=== PATIENT | female | born 1955 | race Caucasian/White ===

== ENCOUNTER 2018-06-27 15:40 | Outpatient (REF) | payer MEDICAID, SELFPAY ==
[2018-06-27 19:52] LABS: Vitamin B12 637 pg/mL (193-986)
== END 2018-06-27 16:00 ==
LOC: NCHCN 15:40
PROVIDERS: PCP Nurse Practitioner Family; Visit Provider Nurse Practitioner Family
DX: D64.9 Anemia, unspecified (principal)
CPT/HCPCS: 82607

== ENCOUNTER 2019-07-26 13:43 | Outpatient (REF) | payer MEDICAID, SELFPAY ==
--- NOTE | 2019-07-26 11:20 | PAPFT_PTH ---
PATIENT: Connie Willis LOC: [facility] U#:[id number] AGE/SX: 64/F ROOM: RE07/26/[address]: Kayleigh Lee : 1955 BED: DIS: 07/26/2019 SPEC #: [id number] RECD: 07/26/19 17:59 STATUS: AUBREE REQ #: [id number] OLGA: 07/26/19 11:[address]: Kayleigh Lee DEPT: [facility] Cytology RECD BY: Michaelle Cadet ENTERED: 07/26/19 18:00 SP TYPE: PAPFT OTHR DR: Meryl Warner Tissues: 1 - CX/ENDOCX FOR PAP SMEARS Procedures: PAP THIN PREP/UVM Screening HPV DNA PROBE Comments: [id number]
== END 2019-07-26 14:03 ==
LOC: LBN 13:43
PROVIDERS: PCP Nurse Practitioner Family; Visit Provider Obstetrics & Gynecology Gynecology
DX: Z12.4 Encounter for screening for malignant neoplasm of cervix (principal); Z11.51 Encounter for screening for human papillomavirus (HPV)
CPT/HCPCS: 88142; 87624

== ENCOUNTER → 2020-11-12 10:45 | Outpatient (BNVA) | payer MEDICARE, MEDICAID, SELFPAY | PROVIDERS: PCP Nurse Practitioner; Referring Provider Nurse Practitioner Family; Visit Provider Physical Therapy Assistant | DX: Z12.11 Encounter for screening for malignant neoplasm of colon (principal); Z86.010 Personal history of colon polyps; Z80.0 Family history of malignant neoplasm of digestive organs ==

== ENCOUNTER 2020-12-21 06:17 | Day surgery (SDC) | payer MEDICARE, OTHER, MEDICAID, SELFPAY ==
[2020-12-21 06:22] VITALS: BP 136/89; PULSE 76; RESP 18; TEMP 36.6; O2SAT 97
[2020-12-21] MEDS: Lactated Ringers 1,000 ML 80 ML IV (06:55)
--- NOTE | 2020-12-21 07:16 | W.PREOPHP ---
Date of service: 12/21/20 Time of Service: 07:17 Assessment and Plan Assessment and plan (1) Encounter for colonoscopy due to history of adenomatous colonic polyps: Status: Acute Assessment and plan: The patient is here for Colonoscopy pre-op.Her last screening was in 2015, which was remarkable for tubular adenomatous polyps x 3. She reports a family history of colon cancer in her mother in her late 70s. She has not had any bowel habit changes. -Discussed colonoscopy bowel prep as well as the procedure. Discussed possible complications of the procedure to include bleeding, pain, perforation, missed small lesion/polyp, sore throat, aspiration and adverse reaction to the medications. Questions were answered to patient?s satisfaction. No guarantees were implied or given. History of Present Illness Narrative: 65 y/o female with history of brain cancer (s/p surgery and radiation in 2017), IBS and depression presents for colonoscopy screening pre-op. Her last screening was in 2015, which was remarkable for tubular adenomatous polyps x 3. She reports a family history of colon cancer in her mother in her late 70s. She denies any changes in bowel habits including bloody or black tarry stools, abdominal pain, diarrhea or constipation. She denies constitutional symptoms. Denies use of marijuana or any other recreational or illegal drugs. She denies chest pain, palpitations, dyspnea or dyspnea with exertion. She reports walking a few times per week as well as participating in [employer] workout classes which work on balance, given her cerebellum was effected during her brain surgery. She denies prior history or family history of adverse reactions or complications with anesthesia. The patient denies any history of stroke, DE, seizures, bleeding or clotting disorders. She denies having any implanted metal in her body. No changes in her health since she was last seen in the office Review of Systems Cardiovascular Cardiovascular: Denies chest pain, Denies chest pain at rest, Denies irregular heart rhythm, Denies dyspnea and Denies dyspnea on exertion Respiratory Respiratory: Denies cough, Denies dyspnea and Denies dyspnea on exertion Gastrointestinal Gastrointestinal: Reports as per HPI Genitourinary Genitourinary: Denies dysuria, Denies urinary incontinence and Denies urinary urgency Endocrine Endocrine: Reports system reviewed and no additional complaints, except as documented Hematologic/Lymphatic Hematologic/Lymphatic: Denies easy bruising and Denies lymphadenopathy [facility] Medical History Adenomatous colon polyp Anal and rectal polyp 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 07/19/2017 excision. 01/11/2018 XRT Calcium nephrolithiasis Depression Dyspareunia 7yrs ago. Used topical E2 with some improvement. Fracture of right fibula closed. casted with no need for surgery. Hematuria 2014 s/p urology eval. 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 After excision of lymphoma of brain July 2017 Trigger finger of thumb Surgical History Appendectomy 1977 Cervical Procedure 2002 cervical polyp removed/sonohysterogram 1996 nabothian cyst and cervical polyp removed. Colonoscopy - IV Sedation (~1999) Cystoscopy 10/16/15- Dr. Son Diagnostic Laproscopy 2002 - burst ovarian cyst Hx of arthroscopy of right knee 1971 Oophrectomy, Right 1989. ovarian cystectomy Social History Smoking/Tobacco Use Status: Former Tobacco Use Quit Date: 10/09/13 Tobacco: How many years used: 30 Smoking risk assessment performed?: Yes Alcohol Intake: current Alcohol Intake frequency: holidays/special occasions only Details: monthly or less/rare Drug use: Never Substance use type: does not use Household members: other Details: lives alone.Not in a relationship. Number of Children: 0 current occupation: book keeper @ [employer] What type of physical activity do you participate in: none Duration: 15-30 minutes/day Frequency: 3-4 times per week Do you feel safe at home: Yes (Lives alone) Female Reproductive History Menstrual Age of Menarche: 13 Menopause type: natural History History 1 Para Hx # Term Pregnancies 0 Multiple births Hx # Pregnancies Ectopic pregnancies AB induced Hx Number of Living Children AB spontaneous Meds Home Medications and Allergies Allergies Allergy/AdvReac Type Severity Reaction Status Date / Time bee/wasp stings Allergy extreme Uncoded 12/21/20 06:47 swelling Home Medications Medication Instructions Recorded Confirmed Type acetaminophen [Tylenol] 325 - 650 mg PO PRN tab-cap 09/29/17 12/21/20 History cyanocobalamin (vitamin B-12) 1,000 mcg PO DAILY 07/05/18 12/21/20 History 1,000 mcg/mL oral drops ibuprofen 200 mg tablet 400 mg PO QID PRN 02/06/19 12/21/20 History Exam Const General: healthy appearing and comfortable Resp Effort & Inspection: normal respiratory effort Auscultation: clear to auscultation bilaterally Cardio Rate: regular rate Rhythm: regular rhythm Heart Sounds: no click, no gallops and no murmurs Results Last Vital Signs Temp 97.9 F 12/21/20 06:22 Pulse 76 12/21/20 06:22 Resp 18 12/21/20 06:22 BP 136/89 12/21/20 06:22 Pulse Ox 97 12/21/20 06:22
--- NOTE | 2020-12-21 07:21 | COLE_ITS ---
Date of service: 12/21/20 Time of Service: 07:32 Colonoscopy Report Date of procedure: 12/21/20 Pre-op diagnosis general: Hx of colon polyps Post-op diagnosis procedure note: same Procedure: Colonoscopy Surgeon: Zuleyma Crocker Anesthesia proc note operative: other (general/ ASA /) Estimated blood loss (mL): 3 Pathology: other (Rectal Polyps x4, ascending polyp x2, transverse polyps x3, descending polyp x2, sigmoid polyps x10) Complications: None Disposition: same day Indications: 65 y/o female with history of brain cancer (s/p surgery and radiation in 2017), IBS and depression presents for colonoscopy screening pre-o p. Her last screening was in 2015, which was remarkable for tubular adenomatous polyps x 3. She reports a family history of colon cancer in her mother in her late 70s. She denies any changes in bowel habits including bloody or black tarry stools, abdominal pain, diarrhea or constipation. She denies constitutional symptoms. Risks, benefits and complications have been reviewed. Complications include but are not limited to bleeding, pain, perforation, missed small lesion/polyp, sore throat, aspiration and adverse reaction to the medications. Questions were entertained and answered to their satisfaction and they wished to proceed. No guarantees were given or implied. Prep: Miralax/Dulcolax Procedure Start Time: 07:32 Procedure End Time: 08:33 Retraction Time: 51 minutes Findings: Multiple small polyps Procedure Description: After informed consent was obtained the patient was taken to the procedure room and placed in a left decubitous position. Monitors were applied and a time out was done. The patients name, date of , procedure, allergies to medications and metal in their body was reviewed. The patient was then sedated. Once sedated and comfortable a rectal exam was done. External exam was normal. Internal exam revealed a normal sphincter tone and no palpable masses. The scope was then introduced and retro-flexed. No internal hemorrhoids, polyps or masses were identified on retro-flexion. The scope was then advanced to the cecum without difficulty. The ileocecal vlave and appendiceal orifice were identified. The prep was good. The scope was then slowly retracted over 52 minutes back into the rectum. Polyps were removed with cold forceps in the ascending colon x2, Transverse colon x2, descending colon x2, sigmoid colon x10 and rectum x4. One polyp was removed with a hot snare in the Transverse colon. There was no diverticulosis noted. The scope was removed and the patient was woken up and taken back to Same day surgery in stable condition. The patient tolerated the procedure well and there were no immediate complications. Follow up: The patient should follow up in 3-5 years unless they develop changes in bowel habits or other new gastrointestinal complaints.
--- NOTE | 2020-12-21 07:24 | W.PM.DSUDISC ---
Discharge Plan Disposition Patient Disposition: HOME Condition: Good Discharge Details Reason For Visit: hx of polyps Attending Provider: Zuleyma Crocker Primary Care Provider: Trisha Calabrese Home Meds and New Rx's Prescriptions: Continued Vitamin B-12 1,000 mcg/mL drops 1,000 mcg PO DAILY RF: 0 acetaminophen [Tylenol] 325 MG tablet 325 - 650 mg PO PRN RF: 0 ibuprofen 200 mg tablet 400 mg PO QID PRNRF: 0 Discharge Instructions Instructions: Colorectal Polyps (DC) Additional Instructions: Findings: Polyps x 21 Follow up: Will depend on pathology results Please call if you develop: fevers >101.5 Nausea or Vomiting Abdominal pain that is not transient DAY SURGERY UNIT POST ENDOSCOPY INSTRUCTIONS 1. Because there will be medication in your system for the next 24 hours, you may feel a little sleepy. Your coordination will be affected. Therefore: a. Do not drive or operate dangerous equipment for 24 hours. b. Do not drink alcohol beverages for 24 hours (not even beer). c. Plan to go home and rest for the day. 2. Generally there are no restrictions on your activity after a day or so has gone by, but you may feel a bit fatigued for a few days. 3 After you arrive home you may have a light meal and return to a normal diet as you can tolerate it without feeling sick to your stomach. 4. After surgery, you may feel pain or discomfort. This should be only transient, but if it persists please contact your doctor. 5. If there are any questions regarding the findings of your procedure, please feel free to contact your doctor. 6. If you are unable to contact your doctor with a problem, contact the hospital at [phone]. 7. Continue all your regular medications unless directed otherwise. I understand the above instructions and have no questions. Signature of Patient or Responsible Adult Escort Date/Time Name of Responsible Adult Escort Signature of Nurse Date/Time Activity:: Activity as Tolerated Diet:: As Tolerated DS: Diagnosis Discharge Diagnosis (1) Encounter for colonoscopy due to history of adenomatous colonic polyps: Status: Acute
--- NOTE | 2020-12-21 07:34 | BOWEL_PTH ---
PATIENT: Connie Willis LOC: [facility] U#:[id number] AGE/SX: 65/F ROOM: RE12/21/[address]: Zuleyma Crocker MD : 1955 BED: DIS: 12/21/2020 SPEC #: [id number] RECD: 12/21/20 12:35 STATUS: AUBREE REDerian #: [id number] OLGA: 12/21/20 07:[address]: Zuleyma Crocker DEPT: Surgical Specimen RECD BY: Michaelle Cadet ENTERED: 12/21/20 12:37 SP TYPE: Bowel OTHR DR: Trisha Calabrese Tissues: 1 - BIOPSY BOWEL 2 - BIOPSY BOWEL 3 - BIOPSY BOWEL 4 - BIOPSY BOWEL 5 - BIOPSY BOWEL Procedures: GROSS AND MICRO LEVEL 4 Comments: [id number]
[2020-12-21 09:01] VITALS: BP 114/81; PULSE 67; RESP 16; TEMP 36.3; O2SAT 99
== END 2020-12-21 09:35 | disposition home or self-care (01) ==
PROVIDERS: PCP Nurse Practitioner; Visit Provider Surgery
PROC: 0DJD8ZZ Inspection of Lower Intestinal Tract, Via Natural or Artificial Opening Endoscopic (ICD-10-PCS; CPT 45378; principal; 2020-12-21 07:30)
DX: Z12.11 Encounter for screening for malignant neoplasm of colon (principal); Z86.010 Personal history of colon polyps; K62.1 Rectal polyp; D12.2 Benign neoplasm of ascending colon; D12.3 Benign neoplasm of transverse colon; D12.4 Benign neoplasm of descending colon; D12.5 Benign neoplasm of sigmoid colon
CPT/HCPCS: 45385; 45380; 88305; NC; J2001; J2405; J2704

== ENCOUNTER 2022-01-20 18:52 | Outpatient (REF) | payer MEDICARE, OTHER, MEDICAID, SELFPAY ==
[2022-01-20 20:32] LABS: Anion Gap 10.8 mmol/L (3-11); BUN 29 mg/dL (7-18); CO2 28.2 mmol/L (21.0-32.0); CREATININE 0.8 mg/dL (0.55-1.02); Calcium 9.2 mg/dL (8.5-10.1); Chloride 100 mmol/L (98-107); Glucose 97 mg/dL (74-106); Magnesium 2.1 mg/dL (1.8-2.4); Potassium 3.5 mmol/L (3.5-5.1); Sodium 139 mmol/L (136-145)
== END 2022-01-20 18:53 | disposition home or self-care (01) ==
LOC: NCHCN 18:52
PROVIDERS: PCP Nurse Practitioner; Visit Provider Nurse Practitioner Family
DX: I10 Essential (primary) hypertension (principal); N20.0 Calculus of kidney
CPT/HCPCS: 80048; 83735

== ENCOUNTER 2022-01-28 13:26 | Outpatient (REF) | payer MEDICARE, OTHER, MEDICAID, SELFPAY ==
[2022-01-28 13:47] LABS: PROTEIN < 6.0 mg/dL (0.0-11.9); Total Volume 3000 ml
== END 2022-01-28 13:27 | disposition home or self-care (01) ==
LOC: NCHCN 13:26
PROVIDERS: PCP Nurse Practitioner; Visit Provider Nurse Practitioner Family
DX: I10 Essential (primary) hypertension (principal); N20.0 Calculus of kidney
CPT/HCPCS: 81050; 84155

== ENCOUNTER → 2022-06-17 11:14 | Outpatient (BNVA) | payer MEDICARE, OTHER, MEDICAID, SELFPAY | PROVIDERS: PCP Nurse Practitioner Family; Referring Provider Nurse Practitioner Family; Visit Provider Surgery | DX: Z86.010 Personal history of colon polyps (principal); Z12.11 Encounter for screening for malignant neoplasm of colon ==

== ENCOUNTER 2022-06-29 09:44 | Day surgery (SDC) | payer MEDICARE, OTHER, MEDICAID, SELFPAY ==
--- NOTE | 2022-06-29 06:50 | W.COLOREPORT ---
Colonoscopy Report Date of procedure: 06/29/22 Pre-op diagnosis general: Colon Cancer Screening, Hx of colon polyps Post-op diagnosis procedure note: other (colon polyps) Procedure: Colonoscopy with polypectomy Surgeon: Zuleyma Crocker Anesthesia Type: General:No Airway Estimated blood loss (mL): 2 Pathology: other (Ascending [id number] x2, descending polyp, sigmoid polyp and rectal polyps x2) Complications: None Disposition: same day Indications: The patient? is a pleasant ? 67-year-old female who is here to discuss another screening colonoscopy. ? Her last colonoscopy was in February of 2021 and she was found to have 21 polyps. She denies any changes in bowel habits, melena, hematochezia, unintentional weight loss or family history of colon cancer.? The procedure and risks were discussed.? The prep was reviewed in detail.? Risks, benefits and complications have been reviewed. Complications include but are not limited to bleeding, pain, perforation, missed small lesion/polyp, sore throat, aspiration and adverse reaction to the medications. Questions were entertained and answered to their satisfaction and they wished to proceed. No guarantees were given or implied. Tells me that she did have some nausea and vomiting a year ago with the MiraLAX prep.? Her was adequate for her colonoscopy last time.? I will keep her on the MiraLAX but will call in some Zofran for the nausea.? I asked her to go ahead and take 1 Zofran prior to starting the prep and then she can take it every 4 hours after that to help and hopefully we can avoid vomiting this time. Prep: Miralax/Dulcolax Procedure Start Time: 11:39 Procedure End Time: 12:13 Retraction Time: 21 minutes Findings: 6 polyps Procedure Description: After informed consent was obtained the patient was taken to the procedure room and placed in a left decubitous position. Monitors were applied and a time out was done. The patients name, date of , procedure, allergies to medications and metal in their body was reviewed. The patient was then sedated. Once sedated and comfortable a rectal exam was done. External exam was normal. Internal exam revealed a normal sphincter tone and no palpable masses. The scope was then introduced and retro-flexed. No internal hemorrhoids, polyps or masses were identified on retro-flexion. The scope was then advanced to the cecum without difficulty. The ileocecal vlave and appendiceal orifice were identified. The prep was adequate. The scope was then slowly retracted over 21 minutes back into the rectum. Polyps were removed with cold forceps in the ascending colon, descending polyp, sigmoid colon and rectal polyps x2 and with cold forceps in the ascending colon polyp. There was no diverticulosis noted. The scope was removed and the patient was woken up and taken back to Same day surgery in stable condition. The patient tolerated the procedure well and there were no immediate complications.
--- NOTE | 2022-06-29 06:52 | W.PM.DSUDISC ---
Discharge Plan Disposition Patient Disposition: HOME Condition: Good Discharge Details Reason For Visit: colonoscopy Attending Provider: Zuleyma Crocker Primary Care Provider: Renee Krause Home Meds and New Rx's Prescriptions: Continued chlorthalidone 25 mg tablet 12.5 mg PO DAILY ondansetron HCl 4 mg tablet 4 mg PO Q4H Qty: 7 0RF Rx Instructions: Use the day of colonoscopy prep to avoid N/V acetaminophen [Tylenol] 325 MG tablet 325 - 650 mg PO PRN ibuprofen 200 mg tablet 400 mg PO QID PRN Discontinued bisacodyl [Dulcolax (bisacodyl)] 5 mg tablet,delayed release (DR/EC) 5 mg PO ONCE Qty: 4 0RF polyethylene glycol 3350 17 gram/dose powder 17 g PO ONCE Qty: 238 0RF Discharge Instructions Instructions: Colorectal Polyps (DC) Additional Instructions: Findings: polyps x 6 Follow up: will depend on final pathology Please call if you develop: fevers >101.5 Nausea or Vomiting Abdominal pain that is not transient Rectal bleeding that is more then a tbsp A hard abdomen and inability to pass gas DAY SURGERY UNIT POST ENDOSCOPY INSTRUCTIONS Instructions for everyone who is given Anesthesia: For your safety, please do the following for the next 24 Hours: a. Do not drive or operate dangerous equipment b. Do not drink alcohol beverages or use any recreational drugs for the first 24 hours or while taking pain medications. The medications in your body may have a reaction that can be dangerous. c. Do not make any important decisions or sign any important papers 1. Generally there are no restrictions on your activity after a day or so has gone by, but you may feel a bit fatigued for a few days. 2. After you arrive home you may have a light meal and return to a normal diet as you can tolerate it without feeling sick to your stomach. 3. After surgery, you may feel pain or discomfort. This should be only transient, but if it persists please contact your doctor. 4. If there are any questions regarding the findings of your procedure, please feel free to contact your doctor. 6. If you are unable to contact your doctor with a problem, contact the hospital at [phone]. 7. Continue all your regular medications unless directed otherwise. I understand the above instructions and have no questions. Signature of Patient or Responsible Adult Escort Date/Time Name of Responsible Adult Escort Signature of Nurse Date/Time Stand Alone Forms: Lisa Benítez (FRANSISCOU) Activity:: Activity as Tolerated Diet:: As Tolerated Discharge Orders Discharge Orders: Discharge Order (Routine); Ordered 06/29/22 Ordered By: Zuleyma Crocker
--- NOTE | 2022-06-29 07:09 | ANES.PREOP_ITS ---
General Info Date of Service Date Performed: 06/29/22 Height: 5 ft 6 in Weight: 78.528 kg Body Mass Index (BMI): 27.9 Surgical Procedure: Operation Date: 06/29/22 11:35 Proposed Procedure Side Surgeon p Colonoscopy Zuleyma Crocker MD Meds Allergies and Home Medications Allergies Allergy/AdvReac Type Severity Reaction Status Date / Time bee/wasp stings Allergy extreme Uncoded 06/28/22 12:09 swelling Home Medication Medication Instructions Recorded acetaminophen 325 mg tablet 325 - 650 mg PO PRN 09/29/17 (Tylenol) ibuprofen 200 mg tablet 400 mg PO QID PRN 02/06/19 bisacodyl 5 mg tablet,delayed 5 mg PO ONCE #4 tabs 06/17/22 release (Dulcolax (bisacodyl)) chlorthalidone 25 mg tablet 12.5 mg PO DAILY 06/17/22 ondansetron HCl 4 mg tablet 4 mg PO Q4H #7 tabs 06/17/22 polyethylene glycol 3350 17 17 g PO ONCE #238 grams 06/17/22 gram/dose oral powder Current Visit Medications: Current Medications Generic Name Dose Route Start Last Admin Trade Name Freq PRN Reason Stop Dose Admin Hyoscyamine Sulfate 0.125 mg 06/29/22 06:52 Hyoscyamine 0.125 Mg Sl/Oral/Chew SL DIRECTED PRN Ringer's Solution 1,000 mls @ 80 mls/hr 06/29/22 06:00 IV 06/29/22 23:59 INFUSION COUNT INCLUDES THE [facility] IV Miscellaneous Supplies 1 each 06/29/22 06:00 Iv Access IV 06/29/22 23:59 DIRECTED LINDA Ondansetron HCl 4 mg 06/29/22 06:52 Ondansetron 4 Mg/2 Ml Vial IVP Q4H PRN PRN Nausea / Vomiting Sodium Chloride 0 ml 06/29/22 06:00 Normal Saline Flush 10 Ml Syr IV 06/29/22 23:59 PRN PRN Sodium Chloride 0 ml 06/29/22 06:00 Normal Saline 10 Ml Vial IJ 06/29/22 23:59 DIRECTED PRN Sterile Water 0 ml 06/29/22 06:00 Water,Injection,Sterile 10 Ml Vial IJ 06/29/22 23:59 DIRECTED PRN PFSH Active Problems Active Problems: Problem Status Onset Code Serrated adenoma of colon D12.6 Tubular adenoma of colon D12.6 Hyperplastic colon polyp K63.5 Encounter for colonoscopy due to history of adenomatous colonic polyps Z12.11, Z86.010 IBS (irritable bowel syndrome) K58.9 Brain neoplasm malignant C71.9 Medical History Medical History Adenomatous colon polyp Anal and rectal polyp Ataxia Calcium nephrolithiasis Cerebellar ataxia Depression Dizziness Dyspareunia 7yrs ago. Used topical E2 with some improvement. Fracture of right fibula closed. casted with no need for surgery. Hematuria 2014 s/p urology eval. 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 After excision of lymphoma of brain July 2017 Trigger finger of thumb Surgical History Surgical History Appendectomy 1977 Cervical Procedure 2002 cervical polyp removed/sonohysterogram 1996 nabothian cyst and cervical polyp removed. Colonoscopy - IV Sedation (~1999) Cystoscopy 10/16/15- Dr. Son Diagnostic Laproscopy 2002 - burst ovarian cyst History of colonoscopy (~10/2020) Hx of arthroscopy of right knee 1970 Oophrectomy, Right 1989. ovarian cystectomy Tobacco Smoking/Tobacco Use Status: Former Tobacco Use Alcohol Alcohol Intake: current Alcohol intake frequency: holidays/special occasions only Details: monthly or less/rare Substance Use Substance use: Never Substance use type: does not use Prental History History 1 Para Hx # Term Pregnancies 0 Multiple births Hx # Pregnancies Ectopic pregnancies AB induced Hx Number of Living Children AB spontaneous Vital Signs and Lab Results Lab Results Blood Type / Crossmatch: No Data to Display Complete Blood Count: No Data to Display Complete Metabolic Panel: No Data to Display Liver Function Panel: No Data to Display Coagulation Panel: No Data to Display Cardiac Panel: No Data to Display Arterial Blood Gas: No Data to Display Venous Blood Gas: No Data to Display Pancreas Panel: No Data to Display Thyroid Panel: No Data to Display Infectious Disease: No Data to Display Blood Cultures: No Data to Display Toxicology Panel: No Data to Display Anesthesia Assessment and Plan Anesthesia History Personal History: No History of Anesthesia Complications Family History: No Family History of Anesthesia Complications Exercise Tolerance Exercise Tolerance: Metabolic Equivalents>4 Pertinent Negatives Pertinent Negatives: No Symptoms of GERD, No Major Cardiovascular Symptoms or Complaints and No Major Pulmonary Symptoms or Complaints Cardiac & Pulmonary Exam Cardiac Exam: Normal S1/S2 Heart Sounds Pulmonary Exam: Clear Bilateral Breath Sounds Implantable Cardiac Device Does patient have a Pacemaker or an ICD?: No Airway Exam Known Difficult Airway: No Mallampati Class: 2 Mouth Opening: Normal (> 3cm) Thyromental Distance: Greater than 3 cm Neck Range of Motion: Full ROM Neck Circumference: Normal Teeth Condition: Normal Dentition and Generalized Poor Dentition ASA Classification ASA Score: ASA 3 Emergency Case?: No NPO Status NPO Status: NPO Clears >2 hours, Solids >8 hours Anesthesia Plan Resuscitation Status: Full Code Anesthesia Technique: General Anesthesia Airway Planned: Natural Airway Monitors Used: Standard Monitors Preoperative Comments:: Ataxia present, feels clumsy most of the time. Used to have vertigo, states not present
[2022-06-29 10:07] VITALS: BP 130/96; PULSE 76; RESP 16; TEMP 36.4; O2SAT 96
[2022-06-29] MEDS: Lactated Ringers 1,000 ML 80 ML IV (10:32)
[2022-06-29 11:34] VITALS: BMI 27.9
--- NOTE | 2022-06-29 11:50 | BOWEL_PTH ---
PATIENT: Connie Willis LOC: [facility] U#:[id number] AGE/SX: 67/F ROOM: RE06/29/[address]: Zuleyma Crocker MD : 1955 BED: DIS: 06/29/2022 SPEC #: [id number] RECD: 06/29/22 13:04 STATUS: AUBREE [facility] #: [id number] OLGA: 06/29/22 11:[address]: Zuleyma Crocker DEPT: Surgical Specimen RECD BY: Michaelle Cadet ENTERED: 06/29/22 13:05 SP TYPE: Bowel OTHR DR: Renee Krause Tissues: 1 - BIOPSY BOWEL 2 - BIOPSY BOWEL 3 - BIOPSY BOWEL 4 - BIOPSY BOWEL Procedures: GROSS AND MICRO LEVEL 4 Comments: [id number]
[2022-06-29 12:19] VITALS: BP 123/95; PULSE 87; RESP 16; TEMP 36.4; O2SAT 97
--- NOTE | 2022-06-29 12:24 | W.ANESPOSTOP ---
Postoperative Evaluation Date, Time and Location Date Performed: 06/29/22 Time Performed: 12:24 Patient Location: Day Surgery Unit Vital Signs Most Recent Imported Vital Signs: Most Recent Vital Signs Temp Pulse Resp BP Pulse Ox 36.4 C L 87 16 123/95 H 97 06/29/22 12:19 06/29/22 12:19 06/29/22 12:19 06/29/22 12:19 06/29/22 12:19 Pain Score Most Recent Pain Score: Most Recent Pain Score Pain Level 3 06/29/22 12:19 Assessment Mental Status: Awake (Alert & Oriented to Patient Baseline) Airway and Respiratory Function: Patent airway with normal (patient baseline) respiratory exam Cardiovascular Function: Hemodynamically Stable Hydration Status: Adequately Hydrated Nausea & Vomiting: No Nausea or Vomiting Pain: Pain is tolerable per patient Peripheral Nerve Block: Patient did not receive a nerve block
[2022-06-29 12:48] VITALS: BP 122/89; PULSE 74; RESP 16; TEMP 36.2; O2SAT 98
== END 2022-06-29 13:07 | disposition home or self-care (01) ==
PROVIDERS: PCP Nurse Practitioner Family; Visit Provider Surgery
PROC: 0DJD8ZZ Inspection of Lower Intestinal Tract, Via Natural or Artificial Opening Endoscopic (ICD-10-PCS; CPT 45378; principal; 2022-06-29 11:30)
DX: Z12.11 Encounter for screening for malignant neoplasm of colon (principal); K63.5 Polyp of colon; Z86.010 Personal history of colon polyps
CPT/HCPCS: 45380; 88305

== ENCOUNTER 2022-07-29 11:17 | Outpatient (REF) | payer MEDICARE, MEDICAID, SELFPAY ==
--- NOTE | 2022-07-29 11:00 | PAPFT_PTH ---
PATIENT: Connie Willis LOC: [facility] U#:[id number] AGE/SX: 67/F ROOM: RE07/29/[address]: Kayleigh Lee : 1955 BED: DIS: 07/29/2022 SPEC #: [id number] RECD: 07/29/22 13:01 STATUS: AUBREE REDerian #: [id number] OLGA: 07/29/22 11:[address]: Kayleigh Lee DEPT: [facility] Cytology RECD BY: Michaelle Cadet ENTERED: 07/29/22 13:01 SP TYPE: PAPFT OTHR DR: Renee Krause Tissues: 1 - CX/ENDOCX FOR PAP SMEARS Procedures: PAP THIN PREP/[facility] Screening HPV DNA PROBE Comments: [id number]
== END 2022-07-29 11:18 | disposition home or self-care (01) ==
LOC: LBN 11:17
PROVIDERS: PCP Nurse Practitioner Family; Visit Provider Obstetrics & Gynecology Gynecology
DX: Z12.4 Encounter for screening for malignant neoplasm of cervix (principal); Z11.51 Encounter for screening for human papillomavirus (HPV); Z01.419 Encounter for gynecological examination (general) (routine) without abnormal findings
CPT/HCPCS: 88142; 87624

== ENCOUNTER 2022-09-15 15:36 | Outpatient (REF) | payer MEDICARE, MEDICAID, SELFPAY | END 2022-09-15 15:37 | disposition home or self-care (01) | LOC: NCHCN 15:36 | PROVIDERS: PCP Nurse Practitioner Family; Visit Provider Nurse Practitioner Family | DX: N39.0 Urinary tract infection, site not specified (principal) | CPT/HCPCS: 87086 ==

== ENCOUNTER 2023-10-30 04:43 | Outpatient (CLI) | payer MEDICARE, SELFPAY ==
[2023-10-30 13:01] LABS: Abs Immature Grans 0.03 10^3/uL (0.0-0.06); Absolute Basophil Count 0.06 10^3/uL (0.0-0.2); Absolute Lymphocyte Count 1.08 10^3/uL (1.2-3.4); Absolute Monocyte Count 0.71 10^3/uL (0.1-0.8); Absolute Neutrophil Count 5.11 10^3/uL (1.2-6.7); Basophils % 0.8; Eosinophils % 1.4; HCT 45.2 % (36.0-46.0); HGB 15.1 g/dL (11.2-15.7); Immature Grans % 0.4; Lymphocytes % 15.2; MCH 28.4 pg (27.0-33.0); MCHC 33.4 % (32.0-36.0); MCV 85 fL (80-95); MPV 10.1 fL (8.0-11.0); Neutrophils % 72.2; Platelet Count 344 10^3/uL (130-400); RBC 5.31 10^6/uL (3.93-5.22); RDW 13.5 % (11.7-14.6); RDW-SD 42.1 fL; WBC 7.09 10^3/uL (4.4-10.8)
[2023-10-30 13:31] LABS: ALT 16 U/L (14-59); AST 9 U/L (15-37); Albumin 3.9 g/dL (3.4-5.0); Alkaline Phosphatase 98 U/L (46-116); Anion Gap 10.3 mmol/L (3-11); BUN 27 mg/dL (7-18); Bilirubin, Total 0.3 mg/dL (0.2-1.0); CO2 29.7 mmol/L (21.0-32.0); CREATININE 0.8 mg/dL (0.55-1.02); Calcium 9.5 mg/dL (8.5-10.1); Chloride 101 mmol/L (98-107); Estimated GFR 80.21 (mL/min/1.73m2); Glucose 121 mg/dL (74-106); LDH 181 U/L (81-234); Potassium 3.6 mmol/L (3.5-5.1); Sodium 141 mmol/L (136-145); Total Protein 7.2 g/dL (6.4-8.2)
[2023-10-31 07:30] LABS: IgA 81 mg/dL (85-499); IgG 749 mg/dL (610-1616); IgM 137 mg/dL (35-242)
== END 2023-10-30 04:44 | disposition home or self-care (01) ==
LOC: LBO 04:43
PROVIDERS: PCP Family Medicine; Visit Provider Internal Medicine Hematology & Oncology
DX: C85.80 Other specified types of non-Hodgkin lymphoma, unspecified site (principal)
CPT/HCPCS: 36415; 80053; 82784; 83615; 85025

== ENCOUNTER 2024-03-06 16:34 | Outpatient (CLI) | payer MEDICARE, SELFPAY ==
[2024-03-06 13:40] LABS: Anion Gap 2.5 mmol/L (3-11); BUN 23 mg/dL (7-18); CO2 32.5 mmol/L (21.0-32.0); CREATININE 0.7 mg/dL (0.55-1.02); Calcium 9.5 mg/dL (8.5-10.1); Calculated LDL 206 mg/dL (<100); Chloride 101 mmol/L (98-107); Cholesterol 294 mg/dL (<200); Estimated GFR 93.56 (mL/min/1.73m2); Glucose 104 mg/dL (74-106); HDL Cholesterol 52 mg/dL (40-60); Potassium 3.2 mmol/L (3.5-5.1); Sodium 136 mmol/L (136-145); Triglyceride 181 mg/dL (<150)
== END 2024-03-06 16:35 | disposition home or self-care (01) ==
LOC: LBO 16:36
PROVIDERS: PCP Family Medicine; Visit Provider Family Medicine
DX: Z13.6 Encounter for screening for cardiovascular disorders (principal); I10 Essential (primary) hypertension
CPT/HCPCS: 36415; 80048; 80061

== ENCOUNTER → 2024-03-14 02:45 | Outpatient (CLI) | payer MEDICARE, SELFPAY ==
--- NOTE | 2024-03-14 08:15 | DI.DEXA_ITS ---
Exam(s) XR DEXA BONE DENSITY W/WO LEONID EXAM: XR DEXA BONE DENSITY W/WO LEONID CLINICAL HISTORY: menopause disorder, N95.9 TECHNIQUE: Routine DEXA evaluation of the lumbar spine, hip, or forearm. COMPARISON: No exams were available for comparison FINDINGS: Performed on a Hologic unit. Lateral image: No compression fracture evident. Lumbar Spine total T-score: -2.1 Hip total T-score:-0.4 Independent reading at the level of the femoral neck yields T-score of -1.3 Forearm total T-score: -2.1 IMPRESSION: Bone mineral density measures in the osteopenia range. Fracture risk is moderate. Note: Any spine fracture indicates 5x risk for subsequent spine fracture and 2x risk for subsequent h ip fracture. World Health Organization criteria for BMD interpretation classify patients: Normal...... T- Score at or above -1.0 Osteopenic... T- Score between -1.0 and -2.5 Osteoporosis... T-Score at or below -2.5
== END ==
PROVIDERS: PCP Family Medicine; Visit Provider Family Medicine
DX: N95.9 Unspecified menopausal and perimenopausal disorder (principal); Z13.820 Encounter for screening for osteoporosis; M81.0 Age-related osteoporosis without current pathological fracture
CPT/HCPCS: 77080

== ENCOUNTER 2024-04-08 14:15 | Outpatient (CLI) | payer MEDICARE, SELFPAY ==
[2024-04-08 13:50] LABS: Anion Gap 7.7 mmol/L (3-11); BUN 20 mg/dL (7-18); CO2 31.3 mmol/L (21.0-32.0); CREATININE 0.8 mg/dL (0.55-1.02); Calcium 9.5 mg/dL (8.5-10.1); Chloride 102 mmol/L (98-107); Estimated GFR 79.71 (mL/min/1.73m2); Glucose 106 mg/dL (74-106); Potassium 3.5 mmol/L (3.5-5.1); Sodium 141 mmol/L (136-145)
== END 2024-04-08 14:16 | disposition home or self-care (01) ==
LOC: LBO 14:18
PROVIDERS: PCP Family Medicine; Visit Provider Nurse Practitioner Adult Health
DX: E87.6 Hypokalemia (principal); G93.40 Encephalopathy, unspecified
CPT/HCPCS: 36415; 80048; 80053; 83615; 85025

== ENCOUNTER 2024-05-23 02:00 | Outpatient (CLI) | payer MEDICARE, SELFPAY ==
--- NOTE | 2024-05-23 09:43 | DI.RAD_ITS ---
Exam(s) XR SHOULDER LT COMPLETE 2+V EXAM: XR SHOULDER LT COMPLETE 2+V CLINICAL HISTORY: left shoulder pain,M25.512. TECHNIQUE: 2D digital imaging was performed of the left shoulder. Six images were obtained. AP, Gr ashey, Y-view and axillary views were obtained. COMPARISON: No exams were available for comparison FINDINGS: BONES: No acute fracture is present. No bony destructive lesion is seen. JOINTS: No dislocation present. There are marked degenerative changes seen at the glenohumeral joint with near complete loss of the joint space. Subchondral cysts are present. There is a moderate size spur at the inferior aspect of the humeral head. The acromioclavicular joint is well maintained. SOFT TISSUE: Normal. IMPRESSION: Marked degenerative changes seen at the left glenohumeral joint. DATA REPOSITORY: RADIATION DOSE DELIVERED:
== END 2024-05-23 02:20 ==
LOC: DI 02:01
PROVIDERS: PCP Family Medicine; Visit Provider Family Medicine
DX: M19.012 Primary osteoarthritis, left shoulder (principal)
CPT/HCPCS: 73030

== ENCOUNTER → 2024-06-18 13:04 | Outpatient (BNVA) | payer MEDICARE, SELFPAY | PROVIDERS: PCP Family Medicine; Referring Provider Family Medicine; Visit Provider Student in an Organized Health Care Education/Training Program | DX: M19.012 Primary osteoarthritis, left shoulder (principal); M75.102 Unspecified rotator cuff tear or rupture of left shoulder, not specified as traumatic | CPT/HCPCS: 99213 ==

== ENCOUNTER 2024-07-19 02:13 | Outpatient (CLI) | payer MEDICARE, SELFPAY ==
[2024-07-19 09:36] LABS: Anion Gap 8.3 mmol/L (3-11); BUN 23 mg/dL (7-18); CO2 30.7 mmol/L (21.0-32.0); CREATININE 0.8 mg/dL (0.55-1.02); Calcium 9.2 mg/dL (8.5-10.1); Calculated LDL 74 mg/dL (<100); Chloride 103 mmol/L (98-107); Cholesterol 146 mg/dL (<200); Estimated GFR 79.71 (mL/min/1.73m2); Glucose 98 mg/dL (74-106); HDL Cholesterol 48 mg/dL (40-60); Potassium 3.3 mmol/L (3.5-5.1); Sodium 142 mmol/L (136-145); Triglyceride 124 mg/dL (<150)
== END 2024-07-19 02:14 | disposition home or self-care (01) ==
LOC: LBO 02:13
PROVIDERS: PCP Family Medicine; Visit Provider Family Medicine
DX: Z13.6 Encounter for screening for cardiovascular disorders (principal); E78.5 Hyperlipidemia, unspecified; I10 Essential (primary) hypertension
CPT/HCPCS: 36415; 80048; 80061

== ENCOUNTER → 2024-09-11 13:56 | Outpatient (BNVA) | payer MEDICARE, SELFPAY | PROVIDERS: PCP Family Medicine; Referring Provider Family Medicine; Visit Provider Student in an Organized Health Care Education/Training Program | DX: M75.102 Unspecified rotator cuff tear or rupture of left shoulder, not specified as traumatic (principal); M19.012 Primary osteoarthritis, left shoulder | CPT/HCPCS: 20610; J1010 ==

== ENCOUNTER → 2025-07-02 11:34 | Outpatient (BNVA) | payer MEDICARE, SELFPAY | PROVIDERS: PCP Family Medicine; Referring Provider Family Medicine; Visit Provider Surgery | DX: Z12.11 Encounter for screening for malignant neoplasm of colon (principal); Z86.0101 Personal history of adenomatous and serrated colon polyps | CPT/HCPCS: S0285 ==

== ENCOUNTER 2025-07-10 07:38 | Day surgery (SDC) | payer MEDICARE, SELFPAY ==
[2025-07-10 08:10] VITALS: BP 138/100; PULSE 87; RESP 18; TEMP 36.5; O2SAT 95
[2025-07-10] MEDS: Lactated Ringers 1,000 ML 80 ML IV (08:24)
--- NOTE | 2025-07-10 08:28 | W.ANESPRE ---
General Info Date of Service Date Performed: 07/10/25 Height: 5 ft 5 in Weight: 78.8 kg Body Mass Index (BMI): 28.9 Surgical Procedure: Operation Date: 07/10/25 08:50 Proposed Procedure Side Surgeon p Colonoscopy Hilary Pandya MD Meds Allergies and Home Medications Allergies Allergy/AdvReac Type Severity Reaction Status Date / Time ondansetron (From Zofran) Allergy Unknown Nausea Verified 07/10/25 08:05 bee/wasp stings Allergy Hives Uncoded 07/10/25 08:05 Home Medication ?Medication ?Instructions ?Recorded acetaminophen 500 mg capsule 1,000 mg PO Q6H PRN 04/28/23 prochlorperazine maleate 5 mg 5 mg PO BID PRN 07/19/23 tablet (Compazine) chlorthalidone 25 mg tablet 25 mg PO DAILY #90 tabs 12/12/24 atorvastatin 40 mg tablet 40 mg PO QHS #90 tabs 02/20/25 potassium chloride 10 mEq 10 meq PO DAILY #30 caps 03/13/25 capsule,extended release cholecalciferol (vitamin D3) 25 25 mcg PO DAILY 03/14/25 mcg (1,000 unit) capsule valacyclovir 500 mg tablet 500 mg PO BID #60 tabs 06/11/25 bisacodyl 5 mg tablet,delayed 5 mg PO ONCE colonscopy bowel prep 07/02/25 release (Dulcolax (bisacodyl)) #4 tabs polyethylene glycol 3350 17 238 g PO ONCE colonoscopy prep 07/02/25 gram/dose oral powder #238 grams Current Visit Medications: Current Medications Generic Name Dose Route Start Last Admin Trade Name Bashirq PRN Reason Stop Dose Admin Ringer's Solution 1,000 mls @ 80 mls/hr 07/10/25 06:00 07/10/25 08:24 IV 07/10/25 23:59 80 mls/hr INFUSION LINDA Administration IV Miscellaneous Supplies 1 each 07/10/25 06:00 Iv Access IV 07/10/25 23:59 DIRECTED LINDA Sodium Biphosphate/Sodium Phosphate 133 - 266 ml 07/10/25 06:00 Na Phosphate Enema-Adult 133 Ml Btl NE 07/10/25 23:59 DIRECTED PRN Sodium Chloride 0 ml 07/10/25 06:00 Normal Saline Flush 10 Ml Syr IV 07/10/25 23:59 PRN PRN Sodium Chloride 0 ml 07/10/25 06:00 Normal Saline 10 Ml Vial IJ 07/10/25 23:59 DIRECTED PRN Sterile Water 0 ml 07/10/25 06:00 Water,Injection,Sterile 10 Ml Vial IJ 07/10/25 23:59 DIRECTED PRN PFSH Active Problems Active Problems: Problem Status Onset Code Encounter for colonoscopy due to history of adenomatous colonic polyps Acute Z12.11, Z86.0101 Left rotator cuff tear arthropathy Acute M75.102, M12.812 Arthritis of left glenohumeral joint Acute M19.012 Osteopenia after menopause Acute M85.80, Z78.0 Hyperlipidemia Acute E78.5 Hypercalciuria Chronic R82.994 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 casted with no need for surgery. Dyspareunia 7yrs ago. Used topical E2 with some improvement. Hematuria 2014 s/p urology eval. 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 states she often vomit after surgery Surgical History Surgical History History of kidney surgery (~2016) for UPJ obstruction x 2 S/P brain surgery (2017) 2016, 2022 History of colonoscopy (~06/2022) History of colonoscopy (~10/2020) Hx of arthroscopy of right knee 1970 Oophrectomy, Right 1989. ovarian cystectomy Diagnostic Laproscopy 2002 - burst ovarian cyst Cystoscopy 10/16/15- Dr. Son Colonoscopy - IV Sedation (~1999) Cervical Procedure 2002 cervical polyp removed/sonohysterogram 1996 nabothian cyst and cervical polyp removed. Appendectomy 1977 Tobacco Smoking/Tobacco Use Status: Former Tobacco Use Passive smoking exposure: Yes (I quit smoking at least 10 years ago!) Second hand exposure: Yes Alcohol Alcohol Intake: current Alcohol intake frequency: holidays/special occasions only Alcohol type: wine and hard liquor Details: monthly or less/rare Substance Use Substance use: Never Substance use type: does not use Details: alcohol: 05/31/25 Prental History History 1 Para Hx # Term Pregnancies 0 Multiple births Hx # Pregnancies Ectopic pregnancies AB induced Hx Number of Living Children AB spontaneous Vital Signs and Lab Results Vital Signs Most Recent Vital Signs in EMR: Most Recent Vital Signs Temp Pulse Resp BP Pulse Ox 36.5 C 87 18 138/100 H 95 07/10/25 08:10 07/10/25 08:10 07/10/25 08:10 07/10/25 08:10 07/10/25 08:10 Anesthesia Assessment and Plan Anesthesia History Personal History: PONV Family History: No Family History of Anesthesia Complications Exercise Tolerance Exercise Tolerance: Metabolic Equivalents>4 Pertinent Negatives Pertinent Negatives: No Symptoms of GERD Cardiac & Pulmonary Exam Cardiac Exam: Normal S1/S2 Heart Sounds Pulmonary Exam: Clear Bilateral Breath Sounds Implantable Cardiac Device Does patient have a Pacemaker or an ICD?: No Airway Exam Known Difficult Airway: No Mallampati Class: 2 Mouth Opening: Normal (> 3cm) Thyromental Distance: Greater than 3 cm Neck Range of Motion: Full ROM Neck Circumference: Normal Teeth Condition: Normal Dentition and Generalized Poor Dentition ASA Classification ASA Score: ASA 3 Emergency Case?: No NPO Status NPO Status: NPO Clears >2 hours, Solids >8 hours Anesthesia Plan Resuscitation Status: Full Code Anesthesia Technique: General Anesthesia Airway Planned: Natural Airway Monitors Used: Standard Monitors
[2025-07-10 08:30] VITALS: BMI 28.9
--- NOTE | 2025-07-10 08:46 | PDOC.DSDIS_ITS ---
Date of service: 07/10/25 Discharge Plan Disposition Patient Disposition: Home Condition: Stable Discharge Details Attending Provider: Hilary Pandya Primary Care Provider: Sandra Billy Home Meds and New Rx's Prescriptions: Continued prochlorperazine maleate [Compazine] 5 mg tablet 5 mg PO BID PRN Patient Comments: pt. states she has taken in awhile cholecalciferol (vitamin D3) 25 mcg (1,000 unit) capsule 25 mcg PO DAILY acetaminophen 500 mg capsule 1,000 mg PO Q6H PRN Patient Comments: 1300 mg Rx Instructions: [place]26/23 [place] [facility] [facility] [place] chlorthalidone 25 mg tablet 25 mg PO DAILY Qty: 90 3RF atorvastatin 40 mg tablet 40 mg PO QHS Qty: 90 3RF potassium chloride 10 mEq capsule, extended release 10 meq PO DAILY Qty: 30 5RF valacyclovir 500 mg tablet 500 mg PO BID Qty: 60 1RF Discontinued bisacodyl [Dulcolax (bisacodyl)] 5 mg tablet,delayed release (DR/EC) 5 mg PO ONCE Qty: 4 0RF Rx Instructions: take per colonoscopy instructions polyethylene glycol 3350 17 gram/dose powder 238 g PO ONCE Qty: 238 0RF Rx Instructions: take per colonoscopy instructions Discharge Instructions Additional Instructions: Normal colonoscopy. No recurrence of polyps. Next colonoscopy will be due in 5 years due to family history of cancer, and personal history of polyps. Stand Alone Forms: Anesthesia Discharge Inst., Colonoscopy Post Instructions, Lisa Benítez (DSU) Activity:: Activity as Tolerated Diet:: As Tolerated Discharge Orders Discharge Orders: Discharge Order (Routine); Ordered 07/10/25 Ordered By: Hilary Pandya DS: Diagnosis Discharge Diagnosis (1) Encounter for colonoscopy due to history of adenomatous colonic polyps: Status: Acute (2) Family history of colon cancer: Status: Acute
--- NOTE | 2025-07-10 09:07 | W.COLOREPORT ---
Date of service: 07/10/25 Time of Service: 09:07 Colonoscopy Report Date of procedure: 07/10/25 Pre-op diagnosis general: History of sessile serrated polyp, fam hx coln cancer Post-op diagnosis procedure note: same Procedure: Colonoscopy Surgeon: Hilary Pandya Anesthesia Type: General:No Airway Estimated blood loss (mL): 0 Pathology: none sent Complications: None Prep: Miralax/Dulcolax (Excellent) Procedure Description: Informed consent was obtained and the patient was taken to the procedure area. The patient was placed in left lateral decubitus position on the procedure table. Timeout was performed. Anesthesia was induced. A lubricated colonoscope was inserted through the anus and passed to the cecum. The cecum was identified by the ileocecal valve and the appendiceal orifice. The scope was then slowly withdrawn and the colonic and rectal mucosa examined. There are no colon or rectal mass lesions, polyps, AVMs. There is no inflammatory change. No diverticulosis was seen. The scope was retroflexed in the anorectal junction examined. Uncomplicated internal hemorrhoids present. Assessment and plan: History of colon polyps Normal colonoscopy. No recurrence of polyps. Next colonoscopy will be due in 5 years due to family history of cancer, and personal history of polyps.
[2025-07-10 09:14] VITALS: BP 123/93; PULSE 78; RESP 14; TEMP 36.3; O2SAT 96
--- NOTE | 2025-07-10 09:28 | W.ANESPOSTOP ---
Postoperative Evaluation Date, Time and Location Date Performed: 07/10/25 Time Performed: 09:28 Patient Location: Day Surgery Unit Vital Signs Most Recent Imported Vital Signs: Most Recent Vital Signs Temp Pulse Resp BP Pulse Ox 36.3 C L 78 14 123/93 H 96 07/10/25 09:14 07/10/25 09:14 07/10/25 09:14 07/10/25 09:14 07/10/25 09:14 Pain Score Most Recent Pain Score: Most Recent Pain Score Pain Level 0 07/10/25 09:14 Assessment Mental Status: Awake (Alert & Oriented to Patient Baseline) Airway and Respiratory Function: Patent airway with normal (patient baseline) respiratory exam Cardiovascular Function: Hemodynamically Stable Hydration Status: Adequately Hydrated Nausea & Vomiting: No Nausea or Vomiting Pain: Pt. Denies Any Pain Peripheral Nerve Block: Patient did not receive a nerve block
[2025-07-10 09:43] VITALS: BP 124/80; PULSE 65; RESP 14; TEMP 36.3; O2SAT 97
== END 2025-07-10 10:29 | disposition home or self-care (01) ==
PROVIDERS: PCP Family Medicine; Visit Provider Surgery
PROC: 0DJD8ZZ Inspection of Lower Intestinal Tract, Via Natural or Artificial Opening Endoscopic (ICD-10-PCS; CPT 45378; principal; 2025-07-10 08:45)
DX: Z12.11 Encounter for screening for malignant neoplasm of colon (principal); Z80.0 Family history of malignant neoplasm of digestive organs; Z86.0101 Personal history of adenomatous and serrated colon polyps
CPT/HCPCS: G0105; J2704